=== PATIENT | female | born 1970 | race Hispanic/Latino ===

== ENCOUNTER 2021-07-01 13:32 | Emergency (ER) | payer OTHER, SELFPAY ==
[~2021-07-01] VITALS: Ht 152.4 cm; Wt 81.6 kg
[2021-07-01 13:34] VITALS: BP 127/92
[2021-07-01] MEDS ORDERED: KETOROLAC 60 MG VIAL (30MG/ML) IM ONE (16:00)
[2021-07-01] MEDS ORDERED: CYCLOBENZAPRINE HCL 10 MG TABLET PO ONE (16:00)
[2021-07-01] MEDS ORDERED: FLUT1DIS IH (16:09)
[2021-07-01] MEDS ORDERED: MELO7.5T12 PO (16:09)
[2021-07-01] MEDS ORDERED: D-ME1POW16 PO (16:09)
[2021-07-01] MEDS ORDERED: ALBUHFA IH (16:09)
[2021-07-01] MEDS ORDERED: CYCL10 PO (16:09)
== END 2021-07-01 16:27 | disposition home or self-care (01) ==
LOC: EDH 13:32
DX: U07.1 COVID-19 (principal); J22 Unspecified acute lower respiratory infection; M94.0 Chondrocostal junction syndrome [Tietze]; F17.210 Nicotine dependence, cigarettes, uncomplicated; E66.9 Obesity, unspecified; Z68.35 Body mass index [BMI] 35.0-35.9, adult
CPT/HCPCS: 71045; 96372; 99283; J1885